=== PATIENT | female | born 1970 | race Caucasian/White ===

== ENCOUNTER 2022-09-04 05:10 | Emergency (ER) | payer MEDICARE, MEDICAID ==
[2022-09-04] MEDS ORDERED: Ondansetron 4 MG/2 ML SDV IVPUSH ONE (05:39)
[2022-09-04] MEDS ORDERED: Sodium Chloride 0.9% 1,000 ML IV ONE (05:51)
[2022-09-04] MEDS ORDERED: Haloperidol Lactate 5 MG/ML SDV IVPUSH ONE (05:51)
[2022-09-04] MEDS ORDERED: Ondansetron 4 MG/2 ML SDV ONE (06:07)
[2022-09-04 07:11] LABS: CORONAVIRUS COVID-19 NAA NEGATIVE (NEGATIVE)
[2022-09-04] MEDS ORDERED: Famotidine 20 MG/2 ML SDV IVPUSH ONE (08:25)
[2022-09-04] MEDS ORDERED: Ketorolac 30 MG/ML SDV IVPUSH ONE (08:35)
== END 2022-09-04 10:17 | disposition home or self-care (01) ==
LOC: CC.ED 05:10
DX: R11.2 Nausea with vomiting, unspecified (principal); I13.0 Hypertensive heart and chronic kidney disease with heart failure and stage 1 through stage 4 chronic kidney disease, or unspecified chronic kidney disease; N18.30 Chronic kidney disease, stage 3 unspecified; I50.9 Heart failure, unspecified; K21.9 Gastro-esophageal reflux disease without esophagitis; Z79.899 Other long term (current) drug therapy; Z20.822 Contact with and (suspected) exposure to COVID-19
CPT/HCPCS: 0240U; 36415; 74176; 80053; 81001; 83690; 85025; 96361; 96374; 96375; 99284; 99285; J1630; J1885; J2405; J3490; J7030

== ENCOUNTER 2024-06-18 23:15 | Emergency (ER) | payer OTHER, MEDICARE, MEDICAID ==
[2024-06-18 23:34] LABS: BASOPHILS ABSOLUTE AUTO 0.03 10^3/uL (0.00-0.50); BASOPHILS PERCENT AUTO 0.7 % (0-1); EOSINOPHILS ABSOLUTE AUTO 0.07 10^3/uL (0.00-1.50); EOSINOPHILS PERCENT AUTO 1.5 % (0-6); HEMATOCRIT 40.1 % (37.0-47.0); HEMOGLOBIN 12.8 g/dL (12.0-16.0); IMMATURE GRAN ABSOLUTE AUTO 0.01 10^3/uL (0.00-0.49); IMMATURE GRAN PERCENT AUTO 0.2 % (0.0-4.9); LYMPHOCYTES ABSOLUTE AUTO 1.35 10^3/uL (0.60-5.00); LYMPHOCYTES PERCENT AUTO 29.4 % (24-44); MEAN CORPUSCULAR HEMOGLOBIN 28.9 pg (27.0-32.0); MEAN CORPUSCULAR HGB CONC 31.9 g/dL (32.0-36.0); MEAN CORPUSCULAR VOLUME 90.5 fL (83.0-97.0); MONOCYTES ABSOLUTE AUTO 0.39 10^3/uL (0.00-1.50); MONOCYTES PERCENT AUTO 8.5 % (0-10); NEUTROPHILS ABSOLUTE AUTO 2.74 x10^3/uL (1.80-8.00); NEUTROPHILS PERCENT AUTO 59.7 % (41-71); PLATELET COUNT,PLT 157 10^3/uL (150-400); RED BLOOD CELL COUNT 4.43 x10^6/uL (4.00-5.50); WHITE BLOOD CELL COUNT,WBC 4.6 10^3/uL (4.0-11.0)
[2024-06-18 23:46] LABS: ALANINE AMINOTRANSFERASE,ALT 20 U/L (12-78); ALKALINE PHOSPHATASE 178 U/L (46-116); ASPARTATE AMNIOTRANSFERASE,AST 28 U/L (15-37); BILIRUBIN TOTAL 0.6 mg/dL (0.0-1.0); BLOOD UREA NITROGEN,BUN 29 mg/dL (7-18); CALCIUM 8.5 mg/dL (8.4-10.1); CARBON DIOXIDE,CO2 29 mmol/L (21-32); CHLORIDE,CL 105 mEq/L (98-106); CREATININE 1.4 mg/dL (0.6-1.0); ESTIMATED GFR 45 mL/min (>=60); GLUCOSE RANDOM 82 mg/dL (75-99); LIPASE 15 U/L (16-77); POTASSIUM,K 4.4 mEq/L (3.5-5.0); PROTEIN TOTAL,TP 6.9 g/dL (6.4-8.2); SODIUM,NA 141 mEq/L (136-145)
[2024-06-18 23:50] LABS: PROTHROMBIN TIME 10.5 SEC (9.3-11.3); PTT,PARTIAL THROMBOPLSTIN TIME 28.7 SEC (20.0-30.0)
== END 2024-06-19 02:05 ==
LOC: CC.ED 23:15
DX: T84.023A Instability of internal left knee prosthesis, initial encounter (principal); I11.0 Hypertensive heart disease with heart failure; I50.9 Heart failure, unspecified; K21.9 Gastro-esophageal reflux disease without esophagitis; Z90.49 Acquired absence of other specified parts of digestive tract; Z79.899 Other long term (current) drug therapy; Z91.040 Latex allergy status; Z91.030 Bee allergy status; Z91.018 Allergy to other foods; Z88.5 Allergy status to narcotic agent; Z88.1 Allergy status to other antibiotic agents; Z91.048 Other nonmedicinal substance allergy status; V47.0XXA Car driver injured in collision with fixed or stationary object in nontraffic accident, initial encounter
CPT/HCPCS: 36415; 70450; 71045; 72125; 73560-LT; 80053; 83690; 85025; 85610; 85730; 99285

== ENCOUNTER 2025-04-23 16:04 | Emergency (ER) | payer MEDICARE, MEDICAID ==
[2025-04-23 16:23] VITALS: BP 142/88; PULSE 75
== END 2025-04-23 17:27 | disposition home or self-care (01) ==
LOC: CC.ED 16:04
DX: S00.83XA Contusion of other part of head, initial encounter (principal); I11.0 Hypertensive heart disease with heart failure; I50.9 Heart failure, unspecified; Z91.040 Latex allergy status; Z88.5 Allergy status to narcotic agent; Z91.018 Allergy to other foods; Z91.030 Bee allergy status; Z79.01 Long term (current) use of anticoagulants; Z79.51 Long term (current) use of inhaled steroids; Z79.899 Other long term (current) drug therapy; W22.8XXA Striking against or struck by other objects, initial encounter; Y93.89 Activity, other specified
CPT/HCPCS: 70486; 99283

== ENCOUNTER 2025-07-06 18:19 | Emergency (ER) | payer MEDICARE, MEDICAID ==
[2025-07-06] MEDS: Orphenadrine 60 MG/2 ML Inj IM ONE (18:50)
== END 2025-07-06 20:05 | disposition home or self-care (01) ==
LOC: CC.ED 18:19
DX: M25.551 Pain in right hip (principal); I11.0 Hypertensive heart disease with heart failure; I50.9 Heart failure, unspecified; K21.9 Gastro-esophageal reflux disease without esophagitis; Z88.1 Allergy status to other antibiotic agents; Z91.040 Latex allergy status; Z91.030 Bee allergy status; Z91.018 Allergy to other foods; Z91.09 Other allergy status, other than to drugs and biological substances; Z79.899 Other long term (current) drug therapy; Z79.890 Hormone replacement therapy; Z90.49 Acquired absence of other specified parts of digestive tract; Z87.891 Personal history of nicotine dependence
CPT/HCPCS: 96372; 99283; A9270-GY; J1171; J2270; J2360

== ENCOUNTER 2025-09-17 12:14 | Emergency (ER) | payer MEDICARE, MEDICAID ==
[2025-09-17] MEDS: Sodium Chloride 0.9% 10 ML Syringe FLUSH PRN (13:24)
== END 2025-09-17 13:53 | disposition home or self-care (01) ==
LOC: CC.ED 12:14
DX: T82.898A Other specified complication of vascular prosthetic devices, implants and grafts, initial encounter (principal); I11.0 Hypertensive heart disease with heart failure; I50.9 Heart failure, unspecified; K21.9 Gastro-esophageal reflux disease without esophagitis; Z91.040 Latex allergy status; Z88.5 Allergy status to narcotic agent; Z91.030 Bee allergy status; Z91.018 Allergy to other foods; Z88.1 Allergy status to other antibiotic agents; Z79.899 Other long term (current) drug therapy; Z79.01 Long term (current) use of anticoagulants; Z79.84 Long term (current) use of oral hypoglycemic drugs; Z90.49 Acquired absence of other specified parts of digestive tract
CPT/HCPCS: 99283

== ENCOUNTER 2025-09-20 07:29 | Emergency (ER) | payer MEDICARE, MEDICAID ==
[2025-09-20] MEDS ORDERED: Sodium Chloride 0.9% 10 ML Syringe FLUSH PRN (08:14)
== END 2025-09-20 08:52 | disposition home or self-care (01) ==
LOC: CC.ED 07:29
DX: T82.898A Other specified complication of vascular prosthetic devices, implants and grafts, initial encounter (principal); I11.0 Hypertensive heart disease with heart failure; I50.9 Heart failure, unspecified; K21.9 Gastro-esophageal reflux disease without esophagitis; Z21 Asymptomatic human immunodeficiency virus [HIV] infection status; Z79.899 Other long term (current) drug therapy; Z79.01 Long term (current) use of anticoagulants; Z91.040 Latex allergy status; Z88.1 Allergy status to other antibiotic agents; Z91.030 Bee allergy status; Z91.048 Other nonmedicinal substance allergy status; Z88.5 Allergy status to narcotic agent
CPT/HCPCS: 99283